=== PATIENT | female | born 1960 | race Two or more races ===

== ENCOUNTER 2025-01-22 20:09 | Emergency (ER) | payer OTHER ==
[~2025-01-22] VITALS: Ht 162.6 cm; Wt 81.2 kg
[2025-01-22] MEDS ORDERED: HUMALOG100 UNIT/2 SUBCUTANEO (21:22)
[2025-01-23] MEDS ORDERED: KETOROLAC TROMETHAMINE 60 MG VIAL IM STA (01:07)
[2025-01-23] MEDS ORDERED: ORPHENADRINE CITRATE 30 MG/ML AMPUL IM STA (01:08)
== END 2025-01-23 02:00 | disposition home or self-care (01) ==
LOC: ER 20:55
DX: T14.8XXA Other injury of unspecified body region, initial encounter (principal); V49.9XXA Car occupant (driver) (passenger) injured in unspecified traffic accident, initial encounter; W22.10XA Striking against or struck by unspecified automobile airbag, initial encounter; Y93.89 Activity, other specified; Y92.413 State road as the place of occurrence of the external cause; Y99.9 Unspecified external cause status; R07.89 Other chest pain; E11.9 Type 2 diabetes mellitus without complications; Z79.4 Long term (current) use of insulin